=== PATIENT | male | born 1975 | race Caucasian/White ===

== ENCOUNTER 2022-08-15 01:49 | Emergency (ER) | payer OTHER ==
[~2022-08-15] VITALS: Ht 177.8 cm; Wt 122.5 kg
[2022-08-15] MEDS ORDERED: IV NORMAL SALINE 1000 ML BAG IV ONE (02:30)
[2022-08-15] MEDS ORDERED: VANCOMYCIN 1G/D5W 200 ML PIGGYBACK IV ONE (02:30)
[2022-08-15] MEDS ORDERED: MORPHINE SULFATE 4 MG/1 ML DISP.SYRIN IV ONE (02:30)
[2022-08-15] MEDS ORDERED: CEFTRIAXONE 1 G in IV DEXTROSE 5% 50 ML IV ONE (02:30)
[2022-08-15] MEDS ORDERED: VANCOMYCIN IV 200 ML ONE (03:15)
[2022-08-15] MEDS ORDERED: MORPHINE SULFATE 2 MG/1 ML DISP.SYRIN ONE (03:15)
[2022-08-15] MEDS ORDERED: CEFTRIAXONE /D5W 50ML IVPB **ER PYXIS IV ONE (03:15)
[2022-08-15] MEDS ORDERED: MORPHINE SULFATE 4 MG/1 ML DISP.SYRIN ONE (03:15)
[2022-08-15 03:19] LABS: HEMATOCRIT 36.5 % (36.7-47.1); MEAN CORPUSCULAR HEMOGLOBIN 29.6 uug (23.8-33.4); MEAN CORPUSCULAR VOLUME 85.2 fL (73.0-96.2); PLATELET COUNT (AUTO) 132 K/uL (152-348)
[2022-08-15 03:37] LABS: BILIRUBIN,DIRECT 0.2 mg/dL (0.0-0.2); CREATININE 1.2 mg/dL (0.6-1.3); POTASSIUM 3.9 mmol/L (3.5-5.1); TOTAL PROTEIN, SERUM 7.2 g/dL (6.4-8.2)
--- NOTE | 2022-08-15 05:09 | NUR ---
Patient does not wish to proceed with medical care recommended by Dr. Carrera. Patient given information related to possible complications, up to and including , which could occur as a result of leaving the hospital at this time. Patient verbalizes understanding of risks involved due to leaving against medical advice. Patient has signed AMA form.
== END 2022-08-15 05:10 | disposition left against medical advice (07) ==
LOC: ER 01:55
DX: M65.841 Other synovitis and tenosynovitis, right hand (principal); S61.411S Laceration without foreign body of right hand, sequela; V00-Y99 External causes of morbidity; I10 Essential (primary) hypertension; K74.60 Unspecified cirrhosis of liver; Z53.29 Procedure and treatment not carried out because of patient's decision for other reasons; Z88.8 Allergy status to other drugs, medicaments and biological substances
CPT/HCPCS: 99284; 96365; 96375; 80076; 80048; 85025; 87040 ×2; 36415; 73130; 96368; 83605; J0696; J3370; J2270 ×2; J7040; A4663